=== PATIENT | female | born 1970 | race Caucasian/White ===

== ENCOUNTER 2020-03-19 07:28 | Emergency (ER) | payer OTHER, SELFPAY ==
[2020-03-19 07:39] VITALS: BP 152/97; PULSE 98; RESP 18; TEMP 36.9; O2SAT 99; BMI 42.5
--- NOTE | 2020-03-19 07:39 | XR_ITS ---
EXAMINATION: LEFT WRIST X-RAY CLINICAL INFORMATION: Trauma/fall COMPARISON: None TECHNIQUE: 2 views left wrist FINDINGS: Bone alignment is normal. No fracture or dislocation is seen. Joint spaces are normal. Soft tissues are normal. XR/XR elbow LT 2V IMPRESSION: Unremarkable examination. EXAMINATION: Left elbow x-ray CLINICAL INFORMATION: Fall COMPARISON: None. TECHNIQUE: 2 views left elbow FINDINGS: Exam is limited due to patient positioning. No fracture or dislocation is seen. There is no joint effusion. Soft tissues are unremarkable. IMPRESSION: Limited exam due to patient positioning. No fracture or dislocation seen. EXAMINATION: Left shoulder x-ray CLINICAL INFORMATION: Fall COMPARISON: None. TECHNIQUE: 3 views left shoulder FINDINGS: There is a comminuted nondisplaced fracture of the left proximal humerus involving the surgical neck and greater tuberosity. Surgical neck fracture may be slightly impacted. Glenohumeral alignment is normal. There is mild joint space narrowing at the acromioclavicular joint. Soft tissues are unremarkable. IMPRESSION: Nondisplaced comminuted left proximal humerus fracture.
--- NOTE | 2020-03-19 07:39 | XR_ITS ---
EXAMINATION: LEFT WRIST X-RAY CLINICAL INFORMATION: Trauma/fall COMPARISON: None TECHNIQUE: 2 views left wrist FINDINGS: Bone alignment is normal. No fracture or dislocation is seen. Joint spaces are normal. Soft tissues are normal. XR/XR wrist LT 2V IMPRESSION: Unremarkable examination. EXAMINATION: Left elbow x-ray CLINICAL INFORMATION: Fall COMPARISON: None. TECHNIQUE: 2 views left elbow FINDINGS: Exam is limited due to patient positioning. No fracture or dislocation is seen. There is no joint effusion. Soft tissues are unremarkable. IMPRESSION: Limited exam due to patient positioning. No fracture or dislocation seen. EXAMINATION: Left shoulder x-ray CLINICAL INFORMATION: Fall COMPARISON: None. TECHNIQUE: 3 views left shoulder FINDINGS: There is a comminuted nondisplaced fracture of the left proximal humerus involving the surgical neck and greater tuberosity. Surgical neck fracture may be slightly impacted. Glenohumeral alignment is normal. There is mild joint space narrowing at the acromioclavicular joint. Soft tissues are unremarkable. IMPRESSION: Nondisplaced comminuted left proximal humerus fracture.
--- NOTE | 2020-03-19 07:39 | XR_ITS ---
EXAMINATION: LEFT WRIST X-RAY CLINICAL INFORMATION: Trauma/fall COMPARISON: None TECHNIQUE: 2 views left wrist FINDINGS: Bone alignment is normal. No fracture or dislocation is seen. Joint spaces are normal. Soft tissues are normal. XR/XR shoulder LT min 2V IMPRESSION: Unremarkable examination. EXAMINATION: Left elbow x-ray CLINICAL INFORMATION: Fall COMPARISON: None. TECHNIQUE: 2 views left elbow FINDINGS: Exam is limited due to patient positioning. No fracture or dislocation is seen. There is no joint effusion. Soft tissues are unremarkable. IMPRESSION: Limited exam due to patient positioning. No fracture or dislocation seen. EXAMINATION: Left shoulder x-ray CLINICAL INFORMATION: Fall COMPARISON: None. TECHNIQUE: 3 views left shoulder FINDINGS: There is a comminuted nondisplaced fracture of the left proximal humerus involving the surgical neck and greater tuberosity. Surgical neck fracture may be slightly impacted. Glenohumeral alignment is normal. There is mild joint space narrowing at the acromioclavicular joint. Soft tissues are unremarkable. IMPRESSION: Nondisplaced comminuted left proximal humerus fracture.
--- NOTE | 2020-03-19 07:40 | ED.EXTPRO ---
HPI - Extremity Problem General Chief complaint: Fall Stated complaint: fell shoulder and arm pain Time Seen by Provider: 03/19/20 07:39 Source: patient Mode of arrival: ambulatory Limitations: no limitations History of Present Illness MD Complaint: extremity pain and extremity swelling Onset (ago): minute(s) (just IT SUPPORT CONSULTANT) Pain Consistency: constant Location: left and upper extremity Quality: aching Radiation: none Relieving factors: nothing Exacerbating factors: range of motion Associated symptoms: denies other symptoms Context: other (slipped on ground and landed on L wrist/elbow/shoulder no head or neck pain no AC therapy) Related Data Previous Rx's Medication Instructions Recorded cyclobenzaprine 10 mg PO TID PRN #18 tab 03/19/20 ibuprofen 600 mg PO Q6H PRN #30 tab 03/19/20 oxycodone 5 mg PO Q6H PRN #30 tab 03/19/20 Allergies Allergy/AdvReac Type Severity Reaction Status Date / Time codeine [CODEINE] Allergy Unknown NOT SURE Unverified 12/14/19 16:29 nefazodone [From SERZONE] Allergy Unknown HIVES Unverified 12/14/19 16:29 Codeine Sulfate Allergy Unknown Uncoded 03/23/12 00:00 serzone Allergy Unknown Uncoded 02/27/15 00:00 Review of Systems Review of Systems: Constitutional : No Fever, No Chills ENT/Mouth : No Ear Pain, No Hoarseness, No sore throat Eyes: No Eye Pain, No Swelling, No Redness, No Foreign Body Cardiovascular : No Chest Pain, No SOB Respiratory : No Cough, No Dyspnea Gastrointestinal : No Nausea, No Vomiting, No Diarrhea, No abdominal Pain Genitourinary : No Dysuria, No Hematuria Musculoskeletal : positive joint pain, No Myalgias, No Joint Swelling Skin : No Skin lacerations, No rash Neuro : No Weakness, No Numbness, No Loss of Consciousness, No Dizziness, No Headache All other systems reviewed and are negative [facility] Past Medical History Attestation statement: The following information was validated with the patient. Medical History Esophageal hernia Lupus Social History Social History (Updated 03/19/20 @ 07:46 by Ange James DO) Smoking Status: Never smoker Use of substances other than those prescribed or required for medical reasons: No Advance Directives: No Advance Directives Information Provided: Yes Physical Exam Vital Signs: Vital Signs: Last Vital Signs Temp 98.4 F 03/19/20 07:39 Pulse 98 03/19/20 07:39 Resp 18 03/19/20 07:39 BP 152/97 H 03/19/20 07:39 Pulse Ox 99 03/19/20 07:39 Body Mass Index 42.5 Appearance: Alert. Oriented X3. No acute distress. Eyes: Pupils equal, round and reactive to light. ENT: Pharynx normal. Neck: Normal inspection. Neck supple. nontender CVS: Normal heart rate and rhythm. Pulses normal. Respiratory: No respiratory distress. Breath sounds normal. Abdomen: Soft and non-tender. Skin: Skin warm and dry. Normal skin color. Normal skin turgor. Extremities: No lower extremity edema. L wrist ttp no obvious deformity, ttp along L elbow, marked ttp L shoulder - distal NV intact Neuro: Oriented X 3. No motor deficit. No sensory deficit. Procedures Orthopedic Splinting/Casting Injury #1: Side: left Upper Extremity Injury Location: shoulder Upper Extremity Immobilizer: sling/shoulder immobilizer MDM - Extremity (Nontraumatic) MDM Narrative Medical decision making narrative: 49 yo female no AC therapy mechcanical fall at home - injuring L wrist/elbow/shoulder - no head or neck injury, will need PO pain control, sling for comfort xrays of L wrist/elbow/shoulder she is NV intact, dispo per results and findings, she is R hand dominant. Discharge Plan Discharge Clinical Impression: Fracture of humerus Patient Disposition: Home, Self-Care Instructions: Proximal Humerus Fracture (ED) Additional Instructions: return to ED for any worsening symptoms or concerns wear sling until cleared Prescriptions: New cyclobenzaprine 10 mg tablet 10 mg PO TID PRN (Reason: muscle spasm) Qty: 18 RF: 0 ibuprofen 600 mg tablet 600 mg PO Q6H PRN (Reason: pain) Qty: 30 RF: 0 oxycodone 5 mg tablet 5 mg PO Q6H PRN (Reason: pain) Qty: 30 RF: 0 Referrals: Campbell Fisher PA-C [Physician Terminal Make Up Operator] - 1 week Stand Alone Forms: Work/School Release
[2020-03-19] MEDS: oxyCODONE HCl Immed Release 5 MG TABLET 10 MG PO (08:06)
== END 2020-03-19 08:53 | disposition home or self-care (01) ==
PROVIDERS: Emergency Provider Emergency Medicine; PCP Internal Medicine
DX: S42.302A Unspecified fracture of shaft of humerus, left arm, initial encounter for closed fracture (principal); M25.532 Pain in left wrist; M79.602 Pain in left arm; W18.30XA Fall on same level, unspecified, initial encounter; Y93.01 Activity, walking, marching and hiking; Y92.9 Unspecified place or not applicable; Y99.9 Unspecified external cause status; Z79.899 Other long term (current) drug therapy
CPT/HCPCS: 29105; 73030; 73070; 73100; 99283

== ENCOUNTER → 2020-03-26 13:23 | Outpatient (BNVA) | payer OTHER, SELFPAY | PROVIDERS: Visit Provider Orthopaedic Surgery | DX: S42.295A Other nondisplaced fracture of upper end of left humerus, initial encounter for closed fracture (principal) | CPT/HCPCS: 99202 ==

== ENCOUNTER 2020-04-08 14:01 | Outpatient (REF) | payer OTHER, SELFPAY | END 2020-04-08 14:02 | disposition home or self-care (01) | LOC: HO.HOSX 14:01 | PROVIDERS: Visit Provider Orthopaedic Surgery | DX: Z13.89 Encounter for screening for other disorder (principal) ==

== ENCOUNTER 2020-04-09 12:36 | Outpatient (REF) | payer OTHER, SELFPAY ==
--- NOTE | 2020-04-09 12:52 | XR_ITS ---
EXAMINATION: XR SHOULDER, LEFT CLINICAL INFORMATION: Pain. Fracture. COMPARISON: Previous x-ray 03/19/2020 TECHNIQUE: Two views of the left shoulder. FINDINGS: There is a at least three-part left surgical humeral neck fracture with fracture of the greater tuberosity. This appears unchanged from previous exam. The joint spaces are normal. Soft tissues are normal. XR/XR shoulder LT min 2V IMPRESSION: No change in left proximal humerus fracture.
--- NOTE | 2020-04-30 10:20 | XR_ITS ---
EXAMINATION: XR SHOULDER, LEFT CLINICAL INFORMATION: Left shoulder pain. COMPARISON: Left shoulder radiographs dated 04/09/2020 TECHNIQUE: AP and scapular Y views of the left shoulder. FINDINGS: Redemonstration of a mildly displaced, comminuted proximal humeral fracture with a transverse component through the humeral neck as well as an oblique component through the greater tuberosity. Fracture fragments are in unchanged anatomic alignment when compared to the prior examination. Minimal interval new bone/callus formation. No dislocation. Small acromioclavicular marginal osteophytes. No osseous erosion or abnormal soft tissue calcification. XR/XR shoulder LT min 2V IMPRESSION: Proximal humeral fracture in unchanged anatomic alignment when compared to the prior examination. Minimal new bone/callus formation.
== END 2020-04-09 12:37 | disposition home or self-care (01) ==
LOC: HO.HOSX 12:36
PROVIDERS: Visit Provider Orthopaedic Surgery
DX: S42.295A Other nondisplaced fracture of upper end of left humerus, initial encounter for closed fracture (principal)
CPT/HCPCS: 73030

== ENCOUNTER → 2020-04-30 10:06 | Outpatient (BNVA) | payer OTHER, SELFPAY | PROVIDERS: PCP Internal Medicine; Visit Provider Orthopaedic Surgery | DX: Z13.89 Encounter for screening for other disorder (principal) | CPT/HCPCS: 73030 ==

== ENCOUNTER → 2020-05-28 10:02 | Outpatient (BNVA) | payer OTHER, SELFPAY | PROVIDERS: PCP Internal Medicine; Visit Provider Orthopaedic Surgery ==

== ENCOUNTER 2020-05-30 14:00 | Outpatient (RCR) | payer OTHER, SELFPAY ==
--- NOTE | 2020-04-16 20:12 | MHC.PT.EP ---
[facility] [place] [facility] [place] [facility] [place] Office [address] Tim Roberts [address] [phone] F: [phone] F: [phone] F: [phone] F: [phone] Physical Therapy Plan of Care Date of Evaluation: 04/16/20 Date of Surgery: Diagnosis: Non displaced fracture of L proximal humerus Assessment: Pt is a 49 y/o female referred to PT for eval and treat of non displaced closed L shoulder proximal humerus fracture resulting in decreased ability to perform HH chores, reaching high shelves, dressing pullovers, reaching her neck and back for hygiene and dressing, lifting and carrying objects of weight as well as disturbed night's sleep secondary to decreased L shoulder ROM and strength, decreased scapular posture, fracture healing process, and pain. Pt is deemed an appropriate candidate to receive skilled PT in order to address her physical limitations to improve her functional ability. Frequency and Duration: The patient will be seen 2 x/ wk x 8 wks. Short Term Goals: In 1 week: initiate HEP with evidence of compliance. In 2 weeks: AAROM flexion improved to at least 90 degrees; initial: PROM to 80 degrees. Intermediate Goals: In 8 weeks: Pt will be able place objects on high shelf with managed Sx. In 8 weeks: I with home program. In 8 weeks: Pt will dress pullovers without difficulty. Treatment Plan: Modalities to reduce pain, spasms and effusion. Manual therapy to restore motion and function. Therapeutic exercise to improve strength and flexibility. Neuromuscular re-education for posture and balance. Therapeutic activities to return to functional activities of daily living. Electronically signed by: Russell Soares PT. Please sign and return to therapist. Thank you for your referral.
--- NOTE | 2020-12-16 08:59 | MHC.PT.DC ---
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 Pt did not attend her last visits for final assessments. Electronically signed by: Russell Soares PT. Please sign and return to therapist. Thank you for your referral.
== END 2020-12-16 09:00 | disposition home or self-care (01) ==
LOC: HO.PTCHIC 14:00
PROVIDERS: PCP Internal Medicine; Visit Provider Orthopaedic Surgery
DX: S42.295D Other nondisplaced fracture of upper end of left humerus, subsequent encounter for fracture with routine healing (principal)
CPT/HCPCS: 97014; 97110; 97161